=== PATIENT | female | born 1950 | race Caucasian/White ===

== ENCOUNTER 2016-10-06 20:50 | Emergency (ER) | payer OTHER ==
[2016-10-06 21:04] VITALS: BP 147/66
[2016-10-06] MEDS ORDERED: Tetan/Diph/Pertus SYR(Tdap)* 0.5 ML SYR(BOOSTRIX) use SYR IM ONE (21:46)
--- NOTE | 2016-10-06 22:02 | UC ---
Skin Complaint HPI - HPI Summary HPI Summary: Patient was cut when a piece of metal fell off a sign and hit her right hand, 4 small cuts noted in the right hand. 1 slightly gaping, - History of Current Complaint Chief Complaint: UCLaceration Time Seen by Provider: 10/06/16 21:46 Stated Complaint: CUTS FROM METAL Hx Obtained From: Patient ?: No Onset/Duration: Sudden Onset, Lasting Hours Skin Exposure Onset/Duration: Hours Ago Timing: Constant Onset Severity: Mild Current Severity: Mild Location: Discrete, Hand (Right) Aggravating: Nothing Alleviating: Nothing - Allergy/Home Medications Allergies/Adverse Reactions: Allergies Allergy/AdvReac Type Severity Reaction Status Date / Time Cefaclor [From Ceclor] Allergy Rash Verified 08/14/15 11:25 Kiwi Extract Allergy THROAT Verified 08/14/15 11:25 CLOSES Latex Allergy UNSURE Verified 08/14/15 11:25 Nitrofurantoin Allergy See Comment Verified 10/06/16 21:05 [From Macrobid] Penicillins Allergy PT DOESN'T Verified 08/14/15 11:25 REMEMBER PINAEAPPLE Allergy THROAT Uncoded 08/14/15 11:25 CLOSES Review of Systems Constitutional: Negative Skin: Other - small cutes, 1 cm laceration Eyes: Negative ENT: Negative Respiratory: Negative Cardiovascular: Negative Gastrointestinal: Negative Genitourinary: Negative Motor: Negative Neurovascular: Negative Musculoskeletal: Negative Neurological: Negative All Other Systems Reviewed And Are Negative: Yes PMH/Surg Hx/FS Hx/Imm Hx Previously Healthy: Yes - Surgical History Surgical History: Yes Surgery Procedure, Year, and Place: COMPLETE HYSTERECTOMY. Rt FALLOPIAN TUBE & OVARY REMOVED (MANY YRS AGO) - Family History Known Family History: Positive: None Negative: Cardiac Disease, Hypertension - Social History Alcohol Use: None Substance Use Type: None Smoking Status (MU): Never Smoked Tobacco Physical Exam Triage Information Reviewed: Yes Appearance: Well-Appearing, Well-Nourished, Pain Distress Vital Signs: Initial Vital Signs Temp 98.8 F 10/06/16 21:00 Pulse 67 10/06/16 21:00 Resp 18 10/06/16 21:00 BP 147/66 10/06/16 21:00 Pulse Ox 99 10/06/16 21:00 Eye Exam: Normal ENT Exam: Normal Dental Exam: Normal Neck exam: Normal Respiratory Exam: Normal Cardiovascular Exam: Normal Abdominal Exam: Normal Bowel Sounds: Positive: Present Musculoskeletal Exam: Normal Neurological Exam: Normal Psychological Exam: Normal Skin: Positive: significant lesion(s) - 1 cm laceration between the 4th and 5 MCP of right hand Course/Dx - Course Course Of Treatment: hx obtained, exam performed ,meds reviewed, tetanus given, hand wound cleansed, 2 steristrips placed over the laceration and telfa and coban applied. - Differential Diagnoses - Skin Complaint Differential Diagnoses: Abscess, Local Allergic Reaction - Diagnoses Provider Diagnoses: 1 cm simple laceration Discharge - Discharge Plan Condition: Stable Disposition: HOME Patient Education Materials: Steristrips (ED) Additional Instructions: 1. allow the steri strips to fall off on their own, 2. Follow up with any signs of infection 3. ibuprofen or tylneol for any pain or swelling.
== END 2016-10-06 22:10 | disposition home or self-care (01) ==
LOC: UCEAST 20:50
DX: S61.411A Laceration without foreign body of right hand, initial encounter (principal); W26.8XXA Contact with other sharp object(s), not elsewhere classified, initial encounter; Z23 Encounter for immunization
CPT/HCPCS: 12001; 90471; 90715; 99211; G0463

== ENCOUNTER 2018-08-22 12:09 | Emergency (ER) | payer OTHER ==
[2018-08-22 12:17] VITALS: BP 122/54
[2018-08-22] MEDS ORDERED: Ibuprofen TAB* 600 MG PO ONE (12:38)
--- NOTE | 2018-08-22 12:40 | UC ---
Respiratory Complaint HPI - HPI Summary HPI Summary: 68-year-old woman comes in with a chief complaint of 4 days of influenza-like symptoms. Started with a fever bodyaches chills. She's also had some runny nose and she has cough and chest congestion. Minimal sore throat. She is taking [id number] medications which do help with the symptoms. She has not heard or felt any wheezing. Bodyaches overall have improved since the beginning of the illness. - History of Current Complaint Chief Complaint: UCGeneralIllness Stated Complaint: FEVER Time Seen by Provider: 08/22/18 12:20 Pain Intensity: 3 - Allergies/Home Medications Allergies/Adverse Reactions: Allergies Allergy/AdvReac Type Severity Reaction Status Date / Time cefaclor [From Ceclor] Allergy Rash Verified 08/22/18 12:20 kiwi Allergy See Comment Verified 08/22/18 12:20 latex Allergy Unknown Verified 08/22/18 12:20 Reaction Details nitrofurantoin Allergy Unknown Verified 08/22/18 12:20 [From Macrobid] Reaction Details Penicillins Allergy Unknown Verified 08/22/18 12:20 Reaction Details PINAEAPPLE Allergy THROAT Uncoded 08/22/18 12:20 CLOSES Home Medications: Home Medications Acetaminophen [Extra Strength Non-Aspirin] 1,000 mg PO 08/22/18 [History] guaiFENesin [Mucinex] 600 mg PO 08/22/18 [History] PMH/Surg Hx/FS Hx/Imm Hx Previously Healthy: Yes Endocrine History: Hypothyroidism - Surgical History Surgical History: Yes Surgery Procedure, Year, and Place: COMPLETE HYSTERECTOMY. Rt FALLOPIAN TUBE & OVARY REMOVED (MANY YRS AGO) - Family History Known Family History: Positive: None Negative: Cardiac Disease, Hypertension - Social History Alcohol Use: Daily Substance Use Type: None Smoking Status (MU): Never Smoked Tobacco Review of Systems All Other Systems Reviewed And Are Negative: Yes Constitutional: Positive: Fever, Chills, Fatigue Skin: Positive: Negative Eyes: Positive: Negative ENT: Positive: Sore Throat, Nasal Discharge, Sinus Congestion Respiratory: Positive: Cough, Other - SEE HPI Cardiovascular: Positive: Negative Gastrointestinal: Positive: Negative Motor: Positive: Negative Neurovascular: Positive: Negative Musculoskeletal: Positive: Myalgia Neurological: Positive: Negative Psychological: Positive: Negative Is Patient Immunocompromised?: No Physical Exam Triage Information Reviewed: Yes Appearance: No Pain Distress, Well-Nourished, Ill-Appearing - MILD Vital Signs: Initial Vital Signs Temp 97.5 F 08/22/18 12:14 Pulse 81 08/22/18 12:14 Resp 18 08/22/18 12:14 BP 122/54 08/22/18 12:14 Pulse Ox 98 08/22/18 12:14 Vital Signs Reviewed: Yes Eye Exam: Normal Eyes: Positive: Conjunctiva Clear ENT: Positive: Pharyngeal erythema, Nasal congestion, Nasal drainage, TMs normal Neck: Positive: Supple Respiratory: Positive: Lungs clear, Normal breath sounds, No respiratory distress Cardiovascular: Positive: RRR Musculoskeletal Exam: Normal Musculoskeletal: Positive: Strength Intact, ROM Intact Neurological Exam: Normal Neurological: Positive: Alert, Muscle Tone Normal Psychological Exam: Normal Psychological: Positive: Age Appropriate Behavior Skin Exam: Normal Respiratory Course/Dx - Course Course Of Treatment: Patient Name: MEEK TAYLOR Medical Record#: [id number] Ordering Physician: Paulo Sanders MD Acct.#: [id number] : 1950 Age: 68 Sex: F Location: [facility] Exam Date: 08/22/18 123 ADM Status: REG ER Order Information: CHEST PA LAT 2 VWS Accession Number: [id number] CPT: 92498 INDICATION: Cough and fever. COMPARISON: Comparison is made with a prior study from April 17, 2015. TECHNIQUE: Dual-energy PA and lateral views of the chest were obtained. FINDINGS: The heart is within normal limits in size. Mediastinal contours appear normal. There is a relatively extensive infiltrate present throughout the left upper lobe. The right lung appears clear. There is a trace left pleural effusion. IMPRESSION: LARGE LEFT UPPER LOBE INFILTRATE MOST CONSISTENT WITH PNEUMONIA. RECOMMEND FOLLOW-UP CHEST X-RAYS TO RESOLUTION. <Electronically signed by Juancho Johns MD in OV> 08/22/18 1303 I discussed the x-ray report with the patient. Patient has pneumonia. We will treat with azithromycin. Also albuterol to help with any bronchospasm. Plan is to follow-up with her primary care doctor. I discussed that if anything got worse she needs to go the emergency department. - Differential Dx/Diagnosis Provider Diagnosis: Pneumonia Discharge - Sign-Out/Discharge Documenting (check all that apply): Patient Departure All imaging exams completed and their final reports reviewed: Yes - Discharge Plan Condition: Stable Disposition: HOME Prescriptions: Albuterol HFA INHALER* [Ventolin HFA Inhaler*] 2 puff INH Q4H PRN #1 mdi PRN Reason: Wheezing Azithromyxin WILFREDO (NF) [Z-Wilfredo (Zithromax) 250 mg tabs #6] 2 tab PO .TODAY, THEN 1 DAILY #6 tab Patient Education Materials: Community Acquired Pneumonia (ED) Referrals: Kristine Romero MD [Primary Care Provider] - Additional Instructions: FOLLOW UP WITH YOUR DOCTOR. GO TO THE EMERGENCY DEPARTMENT IF YOUR CONDITION WORSENS OR ANY QUESTIONS OR CONCERNS. - Billing Disposition and Condition Condition: STABLE Disposition: Home
[2018-08-22 12:55] LABS: Influenza A Molecular NEGATIVE (Negative); Influenza B Molecular NEGATIVE (Negative)
[2018-08-22 14:35] LABS: ABS Eosinophils 0.1 10^3/ul (0-0.6); ABS Lymphocytes 0.9 10^3/ul (1.0-4.8); ABS Monocytes 0.4 10^3/ul (0-0.8); ABS Neutrophils 5.5 10^3/ul (1.5-7.7); Eosinophil % 1.7 %; Hematocrit 40 % (35-47); Hemoglobin 13.7 g/dL (12.0-16.0); Lymphocyte % 13.4 %; Mean Corpuscular HGB Conc 35 g/dL (31-36); Mean Corpuscular Hemoglobin 32 pg (27-31); Mean Corpuscular Volume 92 fL (80-97); Mean Platelet Volume 7.6 fL (7.4-10.4); Platelet Count 190 10^3/uL (150-450); Red Blood Count 4.35 10^6 /uL (3.70-4.87); Red Cell Distribution Width 13 % (10.5-15); White Blood Count 7.1 10^3/uL (3.5-10.8)
== END 2018-08-22 13:35 | disposition home or self-care (01) ==
LOC: UCEAST 12:09
DX: J18.9 Pneumonia, unspecified organism (principal); E03.9 Hypothyroidism, unspecified; Z88.1 Allergy status to other antibiotic agents; Z91.040 Latex allergy status; Z88.0 Allergy status to penicillin; Z91.018 Allergy to other foods
CPT/HCPCS: 36415; 71046; 85025; 99212; A9270-GY; G0463